=== PATIENT | male | born 1950 | race Caucasian/White ===

== ENCOUNTER → 2017-06-21 | Outpatient (CLI) | payer MEDICARE, OTHER | END | disposition home or self-care (01) | LOC: LAB SHORT 10:54 → PLD 10:54 | DX: L82.1 Other seborrheic keratosis (principal); L57.8 Other skin changes due to chronic exposure to nonionizing radiation | CPT/HCPCS: 88305 ==

== ENCOUNTER 2020-08-28 09:00 | Day surgery (SDC) | payer MEDICARE, BC ==
[~2020-08-28] VITALS: Ht 162.6 cm; Wt 77.9 kg
[~2020-08-28 09:00] MED LIST: DICL75ER PO; DIGEST ADV LAC PO; TAMS.4ER PO
--- NOTE | 2020-08-28 09:32 | NUR ---
GAVE CARE OVER TO SHORTY RACHEL RN.
--- NOTE | 2020-08-28 10:05 | NUR ---
Ambulatory in Day Surgery. History, Chart, Medications and Allergies reviewed before start of procedure. Lungs clear T/O to Auscultation. Patient confirms NPO status and agrees with scheduled surgery. Pre-Op teaching done. Pt verbalizes understanding. Patient States Post-Procedure ride home has been arranged.
--- NOTE | 2020-08-28 14:54 | NUR ---
Discharge instructions reviewed with patient. Patient verbalizes understanding. Copy given to patient to take home. Dressing to procedure site clean, dry, intact with no visible drainage, swelling, erythema or bruising noted.
--- NOTE | 2020-08-28 15:04 | NUR ---
Discharged via wheelchair to private car for ride home.
== END 2020-08-28 15:05 | disposition home or self-care (01) ==
LOC: ORSCMMR 09:00 → ORD 11:00 → ORSCMMR 11:00
PROVIDERS: Surgery
PROC: 0YUA4JZ Supplement Bilateral Inguinal Region with Synthetic Substitute, Percutaneous Endoscopic Approach (ICD-10-PCS; principal; 2020-08-28 11:00)
PROC: 8E0W4CZ Robotic Assisted Procedure of Trunk Region, Percutaneous Endoscopic Approach (ICD-10-PCS; principal; 2020-08-28 11:00)
DX: K40.20 Bilateral inguinal hernia, without obstruction or gangrene, not specified as recurrent (principal); I10 Essential (primary) hypertension; Z87.891 Personal history of nicotine dependence; Z79.899 Other long term (current) drug therapy
CPT/HCPCS: 49650; S2900; A9270; C1781; J0690; J1100; J1885; J2250; J2405; J2704; J3010; J7120

== ENCOUNTER → 2022-11-08 | Outpatient (CLI) | payer OTHER | END | disposition home or self-care (01) | LOC: PLD 12:37 → LAB SHORT 12:37 → LAB 12:37 | DX: D48.5 Neoplasm of uncertain behavior of skin (principal) | CPT/HCPCS: 88305 ==